=== PATIENT | male | born 1995 | race Caucasian/White ===

== ENCOUNTER 2020-10-05 17:27 | Emergency (ER) | payer BC, OTHER ==
[2020-10-05 17:44] VITALS: BP 159/98; PULSE 98; TEMP 98.9; BMI 26.2
[2020-10-05] MEDS ORDERED: DIPHTH,PERTUSS(ACELL),TET 0.5 ML DISP.SYRIN IM ONE ×2 (18:03→18:10)
[2020-10-05] MEDS ORDERED: CIPROFLOXACIN 500 MG TABLET (RESTRICTED TO ID) PO ONE (18:18)
[2020-10-05] MEDS ORDERED: CIPROFLOXACIN 250 MG TABLET (RESTRICTED TO ID) PO ONE (18:41)
== END 2020-10-05 18:46 | disposition home or self-care (01) ==
LOC: FER 17:27
PROC: 3E0234Z Introduction of Serum, Toxoid and Vaccine into Muscle, Percutaneous Approach (ICD-10-PCS; principal; 2020-10-05)
DX: S91.331A Puncture wound without foreign body, right foot, initial encounter (principal); W45.0XXA Nail entering through skin, initial encounter; Y93.01 Activity, walking, marching and hiking
CPT/HCPCS: 90715; 99284-25